=== PATIENT | female | born 1950 | race Caucasian/White ===

== ENCOUNTER 2017-03-19 14:56 | Emergency (ER) | payer OTHER ==
[2017-03-19 15:29] VITALS: TEMP 99.6; BMI 39.6
[2017-03-19 16:46] LABS: MCH 33.9 pg (25.7-33.7); MCHC 33.7 g/dl (32.0-36.0); MEAN CELL VOLUME 100.5 fl (80-96); MEAN PLT VOLUME 7.3 fl (7.5-11.1); PLATELET COUNT 179 K/MM3 (134-434); RDW 13.7 % (11.6-15.6); WHITE BLOOD COUNT 9.4 K/mm3 (4.0-10.0)
--- NOTE | 2017-03-19 16:49 | PDOC ---
Attending Attestation - Medical Decision Making 03/19/17 17:04 Dr. Haddad, vascular, was paged via phone answering service at this time requesting a call back for doctor to doctor consult. Dr. Cedillo is on-call this afternoon and will return the call for consult at her earliest convenience. 03/19/17 17:11 Dr. Cedillo returned the call and the patient's case was discussed. <Beckie Smith - Last Filed: 03/19/17 17:11> - Resident Resident Name: Jamil Richey - ED Attending Attestation I have performed the following: I have examined & evaluated the patient, The case was reviewed & discussed with the resident, I agree w/resident's findings & plan, Exceptions are as noted - HPI HPI: 03/19/17 16:47 56-year-old female sent from her dialysis center for clotted shunt. Patient states that was placed by physician in [place] sometime during the summer. Patient has no significant physical complaints, however, is noted that her oral temp is 99.6 - Physicial Exam PE: 03/19/17 18:24 obese 66 yo female with no specific physical complaints but states her dialysis catheter was clotted HEENT wnl Right anterior chest catheter port ,no cellulitis ,noerythema at the site Lungs no wheezing,no rales cvs [id number] abd protuberant,nontender neuro axox3 ,ambulatory - Medical Decision Making 03/19/17 18:29 arranged surgical follow up as outpatient tomorrow,patient agreeable with plan. Discharged home. Labs reviewed and electrolytes ok <Corazon Negron - Last Filed: 03/19/17 18:30>
[2017-03-19 16:59] LABS: URINE APPEARANCE SLCLOUDY; URINE BILIRUBIN NEGATIVE (NEGATIVE); URINE BLOOD NEGATIVE (NEGATIVE); URINE COLOR YELLOW; URINE GLUCOSE (UA) NEGATIVE (NEGATIVE); URINE KETONE NEGATIVE (NEGATIVE); URINE NITRITE NEGATIVE (NEGATIVE); URINE UROBILINOGEN NEGATIVE mg/dL (0.2-1.0)
[2017-03-19 16:59] LABS: INR 0.98 (0.82-1.09); PROTHROMBIN TIME (PATIENT) 10.8 SEC (9.98-11.88)
[2017-03-19 17:06] LABS: URINE PROTEIN 2+ (NEGATIVE)
[2017-03-19 17:12] LABS: ALBUMIN 3.8 g/dl (3.4-5.0); ANION GAP 16 (8-16); BILIRUBIN,TOTAL 0.3 mg/dL (0.2-1.0); CALCIUM 8.7 mg/dL (8.5-10.1); CO2 21 mmol/L (21-32); GLUCOSE,RANDOM 96 mg/dL (74-106); SGOT/AST 8 U/L (15-37); SGPT/ALT 14 U/L (12-78); TOT PROT 6.6 g/dl (6.4-8.2)
[2017-03-19 17:17] LABS: ALK PHOS 124 U/L (45-117)
[2017-03-19 17:20] LABS: CREATININE 7.7 mg/dL (0.55-1.02)
[2017-03-19 17:23] LABS: URIC ACID CRYSTALS RARE /hpf (NONE SEEN); URINE BACTERIA RARE /hpf (NONE SEEN); URINE HYALINE CAST 1 /lpf; URINE RBC <1 /hpf (0-3); URINE WBC 1 /hpf (3-5)
--- NOTE | 2017-03-19 17:24 | PDOC ---
History of Present Illness - General Chief Complaint: Dialysis Shunt Problem Stated Complaint: DIALYSIS PROBLEM Time Seen by Provider: 03/19/17 15:48 History Source: Patient Exam Limitations: No Limitations - History of Present Illness Initial Comments: 03/19/17 17:21 Patient is a 66F on TThS dialysis (unknown what caused her kidney failure), heart failure, HTN, and hypothyroidism here today complaining of a missed dialysis session secondary to a clotted port a cath. She has no other complaints at this time. She denies confusion, chest pain, shortness of breath, cough, abdominal pain, leg swelling, nausea, vomiting, fevers and chills. She denies pain, erythema and discharge at the site. Past History - Past Medical History Allergies/Adverse Reactions: Allergies Allergy/AdvReac Type Severity Reaction Status Date / Time Penicillins Allergy Verified 03/19/17 15:15 Home Medications: Ambulatory Orders Aspirin [Aspirin EC] 81 mg PO DAILY 03/19/17 Docusate Sodium [Colace -] 200 mg PO HS 03/19/17 Doxepin HCl [Sinequan -] 25 mg PO HS 03/19/17 Ergocalciferol [Vitamin D2] 50,000 unit PO Q30D 03/19/17 Folic Acid 1 mg PO DAILY 03/19/17 Levothyroxine [Synthroid -] 75 mcg PO DAILY 03/19/17 Metoprolol Tartrate 25 mg PO DAILY 03/19/17 Sevelamer Carbonate [Renvela] 1,600 mg PO CM 03/19/17 Simvastatin [Zocor] 10 mg PO HS 03/19/17 Trazodone HCl 25 mg PO HS 03/19/17 Vitamin B Comp W-C [Nephro-Kip -] 1 tablet PO DAILY 03/19/17 Zolpidem Tartrate [Ambien] 5 mg PO HS PRN 03/19/17 Anemia: Yes Dialysis: Yes (rt chest dilaysis cath, hd tues,thr,sat) HTN: Yes Hypercholesterolemia: Yes Seizures: Yes (hyper parathyroidism) - Surgical History Abdominal Surgery: Yes (multiple) Appendectomy: Yes - Psycho/Social/Smoking Cessation Hx Anxiety: No Suicidal Ideation: No Smoking History: Never smoked Have you smoked in the past 12 months: No Information on smoking cessation initiated: No Hx Alcohol Use: No Drug/Substance Use Hx: No Substance Use Type: None Review of Systems - Review of Systems Comments:: 03/19/17 17:24 GENERAL/CONSTITUTIONAL: No fever or chills. No weakness. HEAD, EYES, EARS, NOSE AND THROAT: No change in vision. No sore throat. CARDIOVASCULAR: No chest pain or shortness of breath RESPIRATORY: No cough, wheezing, or hemoptysis. GASTROINTESTINAL: No nausea, vomiting, diarrhea or constipation. GENITOURINARY: No dysuria, frequency, or change in urination. SKIN: No rash NEUROLOGIC: No headache, loss of consciousness, or change in strength/sensation. ALLERGIC/IMMUNOLOGIC: No hives or skin allergy. *Physical Exam - Vital Signs Last Vital Signs Temp Pulse Resp BP Pulse Ox 99.6 F 76 18 154/83 100 03/19/17 15:15 03/19/17 15:15 03/19/17 15:15 03/19/17 15:15 03/19/17 15:15 - Physical Exam Comments: 03/19/17 17:25 GENERAL: Awake, alert, and fully oriented, in no acute distress HEAD: No signs of trauma, normocephalic, atraumatic EYES: PERRLA, EOMI, sclera anicteric, conjunctiva clear ENT: Auricles normal inspection, hearing grossly normal, nares patent, oropharynx clear without exudates. Moist mucosa LUNGS: No distress, speaks full sentences, clear to auscultation bilaterally HEART: Regular rate and rhythm, normal S1 and S2, no murmurs, rubs or gallops, peripheral pulses normal and equal bilaterally. ABDOMEN: Soft, nontender, normoactive bowel sounds. No guarding, no rebound. No masses EXTREMITIES: Normal inspection, Normal range of motion, no edema. No clubbing or cyanosis. NEUROLOGICAL: Cranial nerves II through XII grossly intact. Normal speech, no focal sensorimotor deficits SKIN: Warm, Dry, normal turgor, no rashes or lesions noted. ED Treatment Course - LABORATORY CBC & Chemistry Diagram: 03/19/17 16:38 03/19/17 16:38 - ADDITIONAL ORDERS Additional order review: Laboratory Results 03/19/17 03/19/17 16:50 16:38 INR 0.98 Urine Color Yellow Urine Appearance Slcloudy Urine pH 5.0 Urine Protein 2+ H Urine Glucose (UA) Negative Urine Ketones Negative Urine Blood Negative Urine Nitrite Negative Urine Bilirubin Negative Urine Urobilinogen Negative 03/19/17 16:38 RBC 3.10 L MCV 100.5 H MCHC 33.7 RDW 13.7 MPV 7.3 L - RADIOLOGY Radiology Studies Ordered: Category Date Time Status CXRPORT [CHEST X-RAY PORTABLE*] [RAD] Stat Radiology 03/19/17 16:24 Taken Medical Decision Making - Medical Decision Making 03/19/17 17:25 66F on TThS dialysis, CHF, and hypothyroidism here today complaining of missed dialysis secondary to clogged port. No other complains. Vital signs normal and stable. Dr Cedillo, vascular surgeon, consulted. Plans to do replacement as an outpatient tomorrow. Patient finds plan acceptable. Will discharge pending labs and EKG. EKG shows normal sinus rhythm, normal rate, left axis deviation, QTc 472, no st elevations. 03/19/17 17:30 Laboratory Tests 03/19/17 03/19/17 16:38 16:38 WBC 9.4 Hgb 10.5 L Hct 31.2 L Plt Count 179 Potassium 4.4 BUN 64 H Creatinine 7.7 H* CBC shows no white count. Potassium is normal. BUN/Cr elevated, but due for dialysis and planned to get dialysis tomorrow. Will discharge. *DC/Admit/Observation/Transfer Diagnosis at time of Disposition: Dialysis complication Qualifiers: Encounter type: initial encounter Qualified Code(s): T82.9XXA - Unspecified complication of cardiac and vascular prosthetic device, implant and graft, initial encounter - Discharge Dispostion Disposition: HOME Condition at time of disposition: Good Admit: No - Patient Instructions Additional Instructions: Please call Dr Cedillo at [phone] tomorrow morning to setup replacement.
[2017-03-19 18:17] VITALS: BP 155/74; PULSE 71
--- NOTE | 2017-03-20 11:09 | EKG ---
Test Reason : Blood Pressure : / mmHG Vent. Rate : 074 BPM Atrial Rate : 074 BPM P-R Int : 202 ms QRS Dur : 090 ms QT Int : 426 ms P-R-T Axes : 044 -62 000 degrees QTc Int : 472 ms NORMAL SINUS RHYTHM LEFT ANTERIOR FASCICULAR BLOCK POSSIBLE ANTEROLATERAL INFARCT , AGE UNDETERMINED ABNORMAL ECG NO PREVIOUS ECGS AVAILABLE Confirmed by ABHIJIT MENDOZA MD ([id number]) on 03/20/2017 11:09:35 AM Referred By: Confirmed By:ABHIJIT MENDOZA MD
== END 2017-03-19 18:52 | disposition home or self-care (01) ==
LOC: JER 14:56
DX: T82.898A Other specified complication of vascular prosthetic devices, implants and grafts, initial encounter (principal); I25.10 Atherosclerotic heart disease of native coronary artery without angina pectoris; I13.2 Hypertensive heart and chronic kidney disease with heart failure and with stage 5 chronic kidney disease, or end stage renal disease; N18.6 End stage renal disease; I50.9 Heart failure, unspecified; Z99.2 Dependence on renal dialysis
CPT/HCPCS: 36415; 71010-TC; 80053; 81003; 81015; 85027; 85610; 86850; 86900; 86901; 93005; 93010; 99283-25

== ENCOUNTER 2017-03-21 06:50 | Day surgery (SDC) | payer OTHER ==
[2017-03-21 07:06] VITALS: BMI 29.2
--- NOTE | 2017-03-21 07:21 | PDOC ---
History of Present Illness - General Chief Complaint: PICC Line Insertion Stated Complaint: SENT BY PCP Time Seen by Provider: 03/21/17 07:04 Past History - Past Medical History Allergies/Adverse Reactions: Allergies Allergy/AdvReac Type Severity Reaction Status Date / Time Penicillins Allergy Verified 03/21/17 07:05 Home Medications: Ambulatory Orders Aspirin [Aspirin EC] 81 mg PO DAILY 03/19/17 Docusate Sodium [Colace -] 200 mg PO HS 03/19/17 Doxepin HCl [Sinequan -] 25 mg PO HS 03/19/17 Ergocalciferol [Vitamin D2] 50,000 unit PO Q30D 03/19/17 Folic Acid 1 mg PO DAILY 03/19/17 Levothyroxine [Synthroid -] 75 mcg PO DAILY 03/19/17 Metoprolol Tartrate 25 mg PO DAILY 03/19/17 Sevelamer Carbonate [Renvela] 1,600 mg PO CM 03/19/17 Simvastatin [Zocor] 10 mg PO HS 03/19/17 Trazodone HCl 25 mg PO HS 03/19/17 Vitamin B Comp W-C [Nephro-Kip -] 1 tablet PO DAILY 03/19/17 Zolpidem Tartrate [Ambien] 5 mg PO HS PRN 03/19/17 Anemia: Yes Dialysis: Yes (rt chest dilaysis cath, hd tues,thr,sat) HTN: Yes Hypercholesterolemia: Yes Seizures: Yes (hyper parathyroidism) - Surgical History Abdominal Surgery: Yes (multiple) Appendectomy: Yes - Psycho/Social/Smoking Cessation Hx Anxiety: No Suicidal Ideation: No Smoking History: Unknown if ever smoked Have you smoked in the past 12 months: No Information on smoking cessation initiated: No Hx Alcohol Use: No Drug/Substance Use Hx: No Substance Use Type: None *Physical Exam - Vital Signs Last Vital Signs Temp Pulse Resp BP Pulse Ox 98.6 F 73 22 150/80 97 03/21/17 07:05 03/21/17 07:05 03/21/17 07:05 03/21/17 07:05 03/21/17 07:05
--- NOTE | 2017-03-21 07:27 | PDOC ---
Attending Attestation - Physicial Exam PE: 03/21/17 07:49 GENERAL: Awake, alert, and fully oriented, in no acute distress. Obese. HEAD: No signs of trauma EYES: PERRLA, EOMI, sclera anicteric, conjunctiva clear ENT: Auricles normal inspection, hearing grossly normal, nares patent, oropharynx clear without exudates. Moist mucosa NECK: Normal ROM, supple, no lymphadenopathy, JVD, or masses LUNGS: Breath sounds equal, clear to auscultation bilaterally. No wheezes, and no crackles HEART: Regular rate and rhythm, normal S1 and S2, no murmurs, rubs or gallops ABDOMEN: Soft, nontender, normoactive bowel sounds. No guarding, no rebound. No masses EXTREMITIES: Normal range of motion, no edema. No clubbing or cyanosis. No cords, erythema, or tenderness NEUROLOGICAL: Cranial nerves II through XII grossly intact. Normal speech, normal gait SKIN: Permacath to the right chest wall, with no surrounding erythema or drainage from the site. Warm, Dry, normal turgor, no rashes or lesions noted. Documentation prepared by Sandie Chapman, acting as quality engineer medical device for Melissa Avery DO. - Medical Decision Making 03/21/17 08:07 Elenita from [facility] in [place] ([phone]) reports CVC was pulled out on Saturday. Patient did not have dialysis on Saturday. Her vascular surgeon in [place] is Dr. Rajeev Amador ([phone]). Anuradha, certified surgical technician for Dr. Steven Cedillo, reports patient is scheduled for surgery at 9 am. ([phone]). <Sandie Chapman - Last Filed: 03/21/17 08:16> - Resident Resident Name: Susan Cox - ED Attending Attestation I have performed the following: I have examined & evaluated the patient, The case was reviewed & discussed with the resident, I agree w/resident's findings & plan, Exceptions are as noted - HPI HPI: 03/21/17 09:00 66yo female presents from [facility] for eval of a malfunctioning HD catheter. Pt NPO for catheter replacement with Dr. Cedillo this AM. Pt is a poor historian and cannot provide any hx. Pt denies all somatic complaints. - Medical Decision Making 03/21/17 08:29 a/p: 66yo female with ESRD on HD presenting for perm cath change with Dr. Huertas -will discuss with Dr. Huertas -call placed to Anuradha his OR coordinator. -pt missed HD saturday of nonfunctioning perm cath. No somatic complaints. 03/21/17 09:02 Dr. Cedillo at the bedside, spoke with the OR. Pt will go to the OR for Perm catheter change and then to HD this afternoon. No labs needed from ED standpoint. Pt without somatic complaints. 03/21/17 09:02 I, Dr. Melissa Avery DO, attest that this document has been prepared under my direction and personally reviewed by me in its entirety. I further attest, that it accurately reflects all work, treatment, procedures and medical decision -making performed by me. <Melissa Avery - Last Filed: 03/21/17 09:02> Discharge Disposition <Sandie Chapman - Last Filed: 03/21/17 08:16> - Discharge Dispostion Admit: Yes - Transfer to Acute Care Facility Transfer comment: 03/21/17 08:31 I, Dr. Melissa Avery DO, attest that this document has been prepared under my direction and personally reviewed by me in its entirety. I further attest, that it accurately reflects all work, treatment, procedures and medical decision -making performed by me. <Melissa Avery - Last Filed: 03/21/17 09:02> - Diagnosis Dialysis complication, Dialysis catheter clot or failure - Discharge Dispostion Condition at time of disposition: Stable
[2017-03-21] MEDS ORDERED: BUPIVACAINE HCL/PF 0.25% (2.5MG/ML) 10 ML VIAL ONE ×2 (08:42→08:44)
--- NOTE | 2017-03-21 08:52 | PDOC ---
History of Present Illness - General Chief Complaint: PICC Line Insertion Stated Complaint: SENT BY PCP Time Seen by Provider: 03/21/17 07:04 History Source: Patient Exam Limitations: Clinical Condition (confused) - History of Present Illness Initial Comments: 66yo F with PMH of ESRD with HD T/Th/Sat presents from [facility] for replacement of permanent catheter. Pt attempted to have hemodialysis on Saturday , but catheter was found to be clogged. Vascular surgeon (Dr. Cedillo) scheduled to replace catheter in OR. Per pt's paperwork she was to be admitted to the OR through the ER. Then pt is scheduled for dialysis this afternoon. Pt is somewhat confused, thought she was here for a dressing change. Pt is a poor historian and no further history could be obtained. Pt denies complaints including fever, chills, nausea, vomiting, chest pain, palpitations, sob. 03/21/17 08:48 Past History - Past Medical History Allergies/Adverse Reactions: Allergies Allergy/AdvReac Type Severity Reaction Status Date / Time Penicillins Allergy Verified 03/21/17 07:05 Home Medications: Ambulatory Orders Aspirin [Aspirin EC] 81 mg PO DAILY 03/19/17 Docusate Sodium [Colace -] 200 mg PO HS 03/19/17 Doxepin HCl [Sinequan -] 25 mg PO HS 03/19/17 Ergocalciferol [Vitamin D2] 50,000 unit PO Q30D 03/19/17 Folic Acid 1 mg PO DAILY 03/19/17 Levothyroxine [Synthroid -] 75 mcg PO DAILY 03/19/17 Metoprolol Tartrate 25 mg PO DAILY 03/19/17 Sevelamer Carbonate [Renvela] 1,600 mg PO CM 03/19/17 Simvastatin [Zocor] 10 mg PO HS 03/19/17 Trazodone HCl 25 mg PO HS 03/19/17 Vitamin B Comp W-C [Nephro-Kip -] 1 tablet PO DAILY 03/19/17 Zolpidem Tartrate [Ambien] 5 mg PO HS PRN 03/19/17 Anemia: Yes Dialysis: Yes (rt chest dilaysis cath, hd ,thr,sat) HTN: Yes Hypercholesterolemia: Yes Seizures: Yes (hyper parathyroidism) Thyroid Disease: Yes (hypothyroid ) - Surgical History Abdominal Surgery: Yes (multiple) Appendectomy: Yes - Psycho/Social/Smoking Cessation Hx Anxiety: No Suicidal Ideation: No Smoking History: Unknown if ever smoked Have you smoked in the past 12 months: No Information on smoking cessation initiated: No Hx Alcohol Use: No Drug/Substance Use Hx: No Substance Use Type: None Review of Systems - Review of Systems Able to Perform ROS?: Yes Is the patient limited Nam[place]ian proficient: No Constitutional: No: Chills, Diaphoresis, Fever HEENTM: No: Recent change in vision, Ear Pain, Nose Pain, Throat Pain Respiratory: No: Cough, Shortness of Breath, Stridor, Wheezing, Hemoptysis Cardiac (ROS): No: Chest Pain, Edema, Irregular Heart Rate, Lightheadedness, Palpitations, Chest Tightness ABD/GI: No: Abdominal Distended, Constipated, Diarrhea, Nausea, Rectal Bleeding , Vomiting, Abdominal cramping : No: Dysuria, Hematuria Musculoskeletal: No: Joint Pain, Muscle Pain Integumentary: No: Bruising, Erythema, Rash Neurological: No: Headache, Weakness, Dizziness *Physical Exam - Vital Signs Last Vital Signs Temp Pulse Resp BP Pulse Ox 98.6 F 73 18 161/77 97 03/21/17 07:05 03/21/17 08:41 03/21/17 08:41 03/21/17 08:41 03/21/17 08:41 - Physical Exam General Appearance: Yes: Nourished, Appropriately Dressed. No: Apparent Distress HEENT: positive: EOMI, Normal Voice, Other (moist mucous membranes). negative: Pale Conjunctivae, Scleral Icterus (R), Scleral Icterus (L), Rhinorrhea Neck: positive: Trachea midline, Supple Respiratory/Chest: positive: Lungs Clear, Normal Breath Sounds. negative: Respiratory Distress, Accessory Muscle Use Cardiovascular: positive: Regular Rhythm, Regular Rate, S1, S2. negative: Murmur Gastrointestinal/Abdominal: positive: Soft, Tenderness (noted on RUQ, upon re- exam pt denies). negative: Distended, Guarding, Rebound Musculoskeletal: positive: Normal Inspection Extremity: positive: Normal Inspection. negative: Swelling, Calf Tenderness, Erythema Integumentary: positive: Normal Color, Dry, Warm. negative: Bruising Neurologic: positive: Alert, Normal Mood/Affect, Normal Response, Motor Strength 5/5, Confused (somewhat confused, at baseline mentation per content coordinator) Medical Decision Making - Medical Decision Making 66yo F with PMH of ESRD with HD T//Sat presents for replacement of permanent catheter. Dr. Cedillo (vascular surgeon) here in ER to receive pt. No labs needed from the ER. Pt sent to OR. Pt scheduled for hemodialysis later this afternoon. 03/21/17 09:00 *DC/Admit/Observation/Transfer Diagnosis at time of Disposition: Dialysis complication, Dialysis catheter clot or failure - Discharge Dispostion Admit: Yes
[2017-03-21] MEDS ORDERED: BUPIVACAINE HCL/PF 0.5% (5MG/ML) 10 ML VIAL ONE ×2 (08:58→11:07)
--- NOTE | 2017-03-21 09:01 | PN ---
Progress Note (short form) - Note Progress Note: Pt seen in ED, discussed with Nephrology on prior occasion. Pt has ESRD, on dialysis with right IJ permcath [placed elsewhere], catheter not functioning well, needs replacement. Pt is right handed, no pacemakers, no mastectomy, no chest surgery. There is a left forearm AV graft in place which is not functioning and appears never to have been used. Arms are symmetric, BP and pulses symmetric, Ray test shows brisk refill bilaterally. Plan will be to change permcath today and w/u for permanent access as outpt.
[2017-03-21] MEDS ORDERED: MIDAZOLAM HCL 2 MG/2 ML SINGLE DOSE VIAL ONE ×4 (09:44→10:11)
[2017-03-21] MEDS ORDERED: SUCCINYLCHOLINE CHLORIDE 200 MG/10 ML VIAL ONE (10:03)
[2017-03-21] MEDS ORDERED: PROPOFOL 20 ML ONE (10:03)
[2017-03-21] MEDS ORDERED: LIDOCAINE HCL/PF 2% SDV 5ML VIAL ONE (10:03)
[2017-03-21] MEDS ORDERED: VANCOMYCIN 1,000 MG VIAL (RESTRICTED TO ID ONLY) IVPB ONE (10:12)
[2017-03-21] MEDS ORDERED: BUPIVACAINE HCL/PF 0.5% (5MG/ML) 10 ML VIAL IJ ONE (10:19)
[2017-03-21] MEDS ORDERED: HEPARIN NA (PORCINE) 5,000 UNITS/ML 1ML VIAL ONE ×2 (10:21→11:07)
[2017-03-21] MEDS ORDERED: BACITRACIN 50,000 UNITS VIAL NR ONE (10:31)
--- NOTE | 2017-03-21 10:48 | OP ---
Operative Note - Note: Operative Date: 03/21/17 Pre-Operative Diagnosis: Malfunction Permcath Operation: Exchange of permcath Findings: New catheter working well Implants: Permcath Post-Operative Diagnosis: Same as Pre-op Surgeon: Steven Cedillo Specimens Removed: Old catheter Estimated Blood Loss (mls): 5 Drains & Tubes with Location: none
--- NOTE | 2017-03-21 10:57 | OP ---
Operative Note - Note: Operative Date: 03/21/17
[2017-03-21] MEDS ORDERED: ACETAMINOPHEN 325 MG TABLET (FP) PO PRN (10:59)
[2017-03-21 12:01] VITALS: TEMP 97.8
[2017-03-21] MEDS ORDERED: ACETAMINOPHEN 325 MG TABLET (FP) PO ONE (12:20)
[2017-03-21] MEDS ORDERED: ACETAMINOPHEN 325 MG TABLET (FP) ONE (12:28)
[2017-03-21 12:45] VITALS: BP 120/60; PULSE 70
--- NOTE | 2017-03-22 09:28 | PATH ---
Surgical Pathology Report Patient Name: CHRISTINA DENNY Med. Rec. #: [id number] /Age/Gender: 1950 (Age: 66) / F Account: [id number] Location: [facility] Taken: 03/21/2017 Received: 03/21/2017 Reported: 03/22/2017 Physicians: Steven Nguyen M.D. Specimen(s) Received OLD PERMA CATHETER Clinical History Dialysis complication Final Diagnosis [employer] MA[employer]GER, REMOVAL: DOUBLE LUMEN CATHETER CONSISTENT WITH PERMACATH (GROSS ONLY). Electronically Signed Jairo Maddox M.D. Gross Description Received fresh labeled "old permacath," is a 23 cm in length double lumen catheter. Also received within the same container is a 20 cm in length portion of tubing. No soft tissue is present. No sections are submitted, gross only. /03/21/2017 saudi/03/21/2017
--- NOTE | 2017-03-28 15:07 | OP ---
DATE OF OPERATION: 03/21/2017 PREOPERATIVE DIAGNOSIS: Malfunctioning PermCath right internal jugular vein. POSTOPERATIVE DIAGNOSIS: Malfunctioning PermCath right internal jugular vein. SURGERY PERFORMED: Exchange of right internal jugular PermCath. SURGEON: Steven Cedillo MD ANESTHESIA: Local standby. INDICATION FOR PROCEDURE: This patient is a 66-year-old female with end-stage renal disease, who presented with an existing right internal jugular vein PermCath which would not function. The decision was made to exchange the catheter. DESCRIPTION OF PROCEDURE: Patient was taken to the OR, given intravenous sedation and a 2 g of Ancef. The right neck and chest area were prepped and draped in the usual sterile manner. Using 0.5% Marcaine for local anesthesia, a small transverse incision was made at the root of the neck over the catheter tunnel. Through this incision, the existing catheter was identified and grasped with a clamp. At the exit site of the catheter, again with local anesthesia, the cuff of the catheter was carefully removed from the exit site. The catheter was divided in the previous incision, and the outer portion was removed and discarded. A guidewire was passed through the inner portion of the catheter, and the old catheter was removed. A new tunnel was created to the right lateral chest wall with local anesthesia, and using the tunneling device, the 19-cm PermCath was pulled through the tunnel. The sheath and dilator were passed over the guidewire. The guidewire and dilator were removed, and the catheter was placed easily through the peel-away sheath which was then removed. The position of the catheter was confirmed under fluoroscopy, and there was good blood flow in and out of the catheter. Catheter was capped with heparin, anchored with 2-0 nylon sutures, and the small incision was closed with a 4-0 Vicryl subcuticular stitch. Sterile dressings were applied. Estimated blood loss was negligible. Patient was taken to recovery in stable condition. Shaniqua [id number]
== END 2017-03-21 12:30 ==
LOC: JER 06:50 → JASU-SURG 08:31
PROVIDERS: ATTEND Surgery Vascular Surgery
PROC: 0J2TXYZ Change Other Device in Trunk Subcutaneous Tissue and Fascia, External Approach (ICD-10-PCS; principal; 2017-03-21 09:00)
DX: T82.898A Other specified complication of vascular prosthetic devices, implants and grafts, initial encounter (principal); N18.6 End stage renal disease; Z99.2 Dependence on renal dialysis
CPT/HCPCS: 36581; 77001; C1750; 71010-TC; 76000-TC; 88300-TC; 94760; 99282-25; J1644

== ENCOUNTER 2022-05-15 16:23 | Inpatient (IN) | payer OTHER ==
[2022-05-15 18:44] LABS: BASO % 0.2 % (0-2.0); EOS % 1.4 % (0-4.5); HEMATOCRIT 24.1 % (32.4-45.2); HEMOGLOBIN 8.1 GM/dL (10.7-15.3); LYMPH % 12.4 % (8-40); MCH 33.7 pg (25.7-33.7); MCHC 33.4 g/dl (32.0-36.0); MEAN CELL VOLUME 100.7 fl (80-96); MEAN PLT VOLUME 7.1 fl (7.5-11.1); MONO % 6.7 % (3.8-10.2); NEUT % 79.3 % (42.8-82.8); PLATELET COUNT 126 10^3/uL (134-434); RDW 16.6 % (11.6-15.6)
[2022-05-15 19:08] LABS: CHLORIDE 104 mmol/L (98-107); SODIUM 141 mmol/L (136-145)
[2022-05-15 19:10] LABS: ALBUMIN 3.1 g/dl (3.4-5.0); ANION GAP 12 MMOL/L (8-16); CALCIUM 9.4 mg/dL (8.5-10.1); CO2 25 mmol/L (21-32); GLUCOSE,RANDOM 104 mg/dL (74-106); MAGNESIUM 2.2 mg/dL (1.8-2.4)
[2022-05-15 19:11] LABS: BLOOD UREA NITROGEN 82.8 mg/dL (7-18)
[2022-05-15 19:13] LABS: PHOSPHOROUS 3.7 mg/dL (2.5-4.9); SGOT/AST 10 U/L (15-37)
[2022-05-15 19:14] LABS: SGPT/ALT 22 U/L (13-61)
[2022-05-15 19:15] LABS: BILIRUBIN,TOTAL 0.3 mg/dL (0.2-1); TOT PROT 5.8 g/dl (6.4-8.2)
[2022-05-15 19:16] LABS: ALK PHOS 81 U/L (45-117)
[2022-05-15 19:17] LABS: CREATININE 13.4 mg/dL (0.55-1.3)
[2022-05-16 00:59] VITALS: BMI 43.3
[2022-05-16] MEDS: ALBUTEROL SO4 2.5/IPRATROPIUM 0.5 INH SOL 3 ML VIAL.NEB. NEB SCH ×2 (08:26→20:50)
[2022-05-16 10:18] LABS: INR 0.99 (0.83-1.09); PROTHROMBIN TIME (PATIENT) 11.4 SEC (9.7-13.0)
[2022-05-16 10:24] LABS: BASO % 0.2 % (0-2.0); HEMATOCRIT 22.7 % (32.4-45.2); HEMOGLOBIN 7.6 GM/dL (10.7-15.3); LYMPH % 14.1 % (8-40); MCH 33.4 pg (25.7-33.7); MCHC 33.4 g/dl (32.0-36.0); MEAN CELL VOLUME 100.1 fl (80-96); MEAN PLT VOLUME 7.3 fl (7.5-11.1); MONO % 7.1 % (3.8-10.2); NEUT % 77.6 % (42.8-82.8); PLATELET COUNT 112 10^3/uL (134-434); RBC 2.27 M/mm3 (3.60-5.2); WHITE BLOOD COUNT 7.2 K/mm3 (4.0-10.0)
[2022-05-16 10:30] LABS: CHLORIDE 104 mmol/L (98-107); SODIUM 141 mmol/L (136-145)
[2022-05-16 10:43] LABS: ALBUMIN 2.8 g/dl (3.4-5.0); BLOOD UREA NITROGEN 86.5 mg/dL (7-18); CALCIUM 9.2 mg/dL (8.5-10.1); GLUCOSE,RANDOM 79 mg/dL (74-106)
[2022-05-16 10:44] LABS: ANION GAP 11 MMOL/L (8-16); CO2 25 mmol/L (21-32); MAGNESIUM 2.5 mg/dL (1.8-2.4)
[2022-05-16 10:46] LABS: PHOSPHOROUS 4.3 mg/dL (2.5-4.9); SGOT/AST 9 U/L (15-37); SGPT/ALT 20 U/L (13-61)
[2022-05-16 10:48] LABS: ALK PHOS 69 U/L (45-117); BILIRUBIN,TOTAL 0.3 mg/dL (0.2-1); TOT PROT 5.4 g/dl (6.4-8.2)
[2022-05-16 11:15] LABS: CREATININE 14.2 mg/dL (0.55-1.3)
[2022-05-16] MEDS: ASPIRIN 81 MG CHEWABLE TABLETS PO SCH ×2 (11:22→13:25)
[2022-05-16] MEDS: SEVELAMER CARBONATE 800 MG TAB (FP) PO SCH ×3 (11:22→18:25)
[2022-05-16] MEDS: FERROUS SO4 325 MG TABLET (FP) PO SCH ×2 (11:22→13:25)
[2022-05-16] MEDS: AMIODARONE HCL 200 MG TABLET PO SCH ×2 (11:22→13:26)
[2022-05-16] MEDS: VITAMIN B COMP W-C 1 EA TABLET (NEPHRO-VITE) PO SCH ×2 (11:22→13:27)
[2022-05-16] MEDS: FOLIC ACID 1 MG TABLET (FP) PO SCH ×2 (11:22→13:26)
[2022-05-16] MEDS: CHOLECALCIFEROL (VIT D3) 1,000 UNIT (25 MCG) TABLET PO SCH ×2 (11:23→13:25)
[2022-05-16] MEDS: metoPROLOL SUCCINATE 25 MG TAB.SR.24H (FP) PO SCH ×2 (11:23→13:53)
[2022-05-16] MEDS: SENNOSIDES 8.6MG TABLET (FP) PO SCH ×2 (11:23→13:27)
[2022-05-16] MEDS ORDERED: SODIUM CHLORIDE 250 ML IV PRN (13:10)
[2022-05-16] MEDS: HEPARIN NA (PORCINE) 5,000 UNITS/ML 1ML VIAL SQ SCH ×2 (13:21→21:00)
[2022-05-16] MEDS: LEVOTHYROXINE NA 88 MCG TABLET (FP) PO SCH (13:21)
[2022-05-16] MEDS: NYSTATIN POWDER 100,000 UNITS/GM - 15 GM TOPICAL POWDER TP SCH (13:55)
[2022-05-16] MEDS ORDERED: ATORVASTATIN CA 10 MG TABLET (FP) PO SCH (22:00)
[2022-05-16] MEDS ORDERED: MONTELUKAST NA 10 MG TABLET PO SCH (22:00)
[2022-05-16] MEDS ORDERED: MELATONIN 5 MG TABLETS PO SCH (22:00)
[2022-05-17] MEDS: LEVOTHYROXINE NA 88 MCG TABLET (FP) PO SCH (06:28)
[2022-05-17] MEDS ORDERED: EPOETIN ALFA-EPBX 20,000 UNIT/ML VIAL IVPUSH ONE ×2 (08:00→18:55)
[2022-05-17] MEDS: SEVELAMER CARBONATE 800 MG TAB (FP) PO SCH ×3 (09:10→18:32)
[2022-05-17] MEDS: FERROUS SO4 325 MG TABLET (FP) PO SCH (10:00)
[2022-05-17 11:01] LABS: BASO % 0.2 % (0-2.0); EOS % 1.1 % (0-4.5); HEMOGLOBIN 7.5 GM/dL (10.7-15.3); LYMPH % 13.5 % (8-40); MCH 32.7 pg (25.7-33.7); MCHC 32.7 g/dl (32.0-36.0); MEAN PLT VOLUME 7.5 fl (7.5-11.1); MONO % 6.6 % (3.8-10.2); NEUT % 78.6 % (42.8-82.8); PLATELET COUNT 114 10^3/uL (134-434); RDW 16.5 % (11.6-15.6); WHITE BLOOD COUNT 6.7 K/mm3 (4.0-10.0)
[2022-05-17] MEDS: SENNOSIDES 8.6MG TABLET (FP) PO SCH (11:24)
[2022-05-17] MEDS: VITAMIN B COMP W-C 1 EA TABLET (NEPHRO-VITE) PO SCH (11:24)
[2022-05-17] MEDS: FOLIC ACID 1 MG TABLET (FP) PO SCH (11:24)
[2022-05-17] MEDS: ALBUTEROL SO4 2.5/IPRATROPIUM 0.5 INH SOL 3 ML VIAL.NEB. NEB SCH ×2 (11:24→20:08)
[2022-05-17] MEDS: CHOLECALCIFEROL (VIT D3) 1,000 UNIT (25 MCG) TABLET PO SCH (11:24)
[2022-05-17] MEDS: metoPROLOL SUCCINATE 25 MG TAB.SR.24H (FP) PO SCH (11:25)
[2022-05-17] MEDS: NYSTATIN POWDER 100,000 UNITS/GM - 15 GM TOPICAL POWDER TP SCH (11:25)
[2022-05-17] MEDS ORDERED: LIDOCAINE HCL 1%, 10 MG/ML (20ML VIAL) ONE (15:05)
[2022-05-17] MEDS ORDERED: HEPARIN NA (PORCINE) 5,000 UNITS/ML 1ML VIAL ONE (15:05)
[2022-05-17] MEDS ORDERED: ONDANSETRON 4 MG/2 ML VIAL IVPUSH PRN ×2 (15:37→17:25)
[2022-05-17] MEDS ORDERED: SODIUM CHLORIDE 1,000 ML IV SCH (15:45)
[2022-05-17] MEDS ORDERED: MIDAZOLAM HCL 2 MG/2 ML SINGLE DOSE VIAL ONE (16:01)
[2022-05-17] MEDS ORDERED: IRON SUCROSE INJECTION 100 MG in SODIUM CHLORIDE 95 ML IVPB ONE ×2 (16:15→19:00)
[2022-05-17] MEDS ORDERED: SODIUM CHLORIDE 250 ML IV PRN ×2 (16:15→18:38)
[2022-05-17] MEDS ORDERED: CLINDAMYCIN 600 MG PREMIX BAG IVPB ONE ×2 (16:18→16:25)
[2022-05-17] MEDS ORDERED: CLINDAMYCIN 600MG PREMIX IVPB 600 MG/50 ML BAG IVPB ONE (16:26)
[2022-05-17] MEDS ORDERED: LIDOCAINE HCL 1%, 10 MG/ML (20ML VIAL) INF ONE ×2 (16:29)
[2022-05-17] MEDS: SODIUM CHLORIDE 1,000 ML IV SCH ×2 (19:00→21:44)
[2022-05-17 19:46] LABS: HEMATOCRIT 22.7 % (32.4-45.2); HEMOGLOBIN 7.5 GM/dL (10.7-15.3); MCHC 33.1 g/dl (32.0-36.0); MEAN CELL VOLUME 99.9 fl (80-96); MEAN PLT VOLUME 7.1 fl (7.5-11.1); PLATELET COUNT 112 10^3/uL (134-434); RBC 2.28 M/mm3 (3.60-5.2); RDW 16.5 % (11.6-15.6); WHITE BLOOD COUNT 6.7 K/mm3 (4.0-10.0)
[2022-05-17 20:06] LABS: CALCIUM 9.2 mg/dL (8.5-10.1); CHLORIDE 104 mmol/L (98-107); SODIUM 143 mmol/L (136-145)
[2022-05-17 20:08] LABS: ANION GAP 14 MMOL/L (8-16); CO2 25 mmol/L (21-32); GLUCOSE,RANDOM 106 mg/dL (74-106)
[2022-05-17 20:11] LABS: PHOSPHOROUS 3.3 mg/dL (2.5-4.9)
[2022-05-17 20:16] LABS: CREATININE 11.8 mg/dL (0.55-1.3)
[2022-05-17] MEDS: PATIENT'S OWN MEDICATION (NON-FORMULARY) (Fluticasone/Vilanterol 1 PUFF Inhaler) IN SCH (20:36)
[2022-05-17] MEDS: MELATONIN 5 MG TABLETS PO SCH (21:42)
[2022-05-17] MEDS: HEPARIN NA (PORCINE) 5,000 UNITS/ML 1ML VIAL SQ SCH (21:42)
[2022-05-17] MEDS: MONTELUKAST NA 10 MG TABLET PO SCH (21:43)
[2022-05-17] MEDS: ATORVASTATIN CA 10 MG TABLET (FP) PO SCH (21:43)
[2022-05-17] MEDS ORDERED: VILANTEROL IN SCH (23:15)
[2022-05-17] MEDS ORDERED: FLUTICASONE IN SCH (23:15)
[2022-05-18] MEDS: HEPARIN NA (PORCINE) 5,000 UNITS/ML 1ML VIAL SQ SCH ×3 (06:33→22:05)
[2022-05-18] MEDS: LEVOTHYROXINE NA 88 MCG TABLET (FP) PO SCH (06:34)
[2022-05-18] MEDS: ALBUTEROL SO4 2.5/IPRATROPIUM 0.5 INH SOL 3 ML VIAL.NEB. NEB SCH ×2 (08:30→20:31)
[2022-05-18] MEDS: AMIODARONE HCL 200 MG TABLET PO SCH (09:41)
[2022-05-18] MEDS: metoPROLOL SUCCINATE 25 MG TAB.SR.24H (FP) PO SCH (09:41)
[2022-05-18] MEDS: SENNOSIDES 8.6MG TABLET (FP) PO SCH (09:53)
[2022-05-18] MEDS: FOLIC ACID 1 MG TABLET (FP) PO SCH (09:53)
[2022-05-18] MEDS: VITAMIN B COMP W-C 1 EA TABLET (NEPHRO-VITE) PO SCH (09:54)
[2022-05-18] MEDS: ASPIRIN 81 MG CHEWABLE TABLETS PO SCH (09:54)
[2022-05-18] MEDS: NYSTATIN POWDER 100,000 UNITS/GM - 15 GM TOPICAL POWDER TP SCH (09:54)
[2022-05-18] MEDS: SEVELAMER CARBONATE 800 MG TAB (FP) PO SCH ×3 (09:54→18:20)
[2022-05-18] MEDS: FERROUS SO4 325 MG TABLET (FP) PO SCH (09:54)
[2022-05-18] MEDS: CHOLECALCIFEROL (VIT D3) 1,000 UNIT (25 MCG) TABLET PO SCH (09:54)
[2022-05-18 10:00] LABS: BASO % 0.1 % (0-2.0); EOS % 0.9 % (0-4.5); HEMOGLOBIN 7.2 GM/dL (10.7-15.3); LYMPH % 12.3 % (8-40); MCH 32.7 pg (25.7-33.7); MCHC 32.9 g/dl (32.0-36.0); MEAN CELL VOLUME 99.6 fl (80-96); MEAN PLT VOLUME 7.3 fl (7.5-11.1); MONO % 6.8 % (3.8-10.2); NEUT % 79.9 % (42.8-82.8); PLATELET COUNT 101 10^3/uL (134-434); RBC 2.21 M/mm3 (3.60-5.2); RDW 16.6 % (11.6-15.6); WHITE BLOOD COUNT 6.9 K/mm3 (4.0-10.0)
[2022-05-18] MEDS ORDERED: AMIODARONE HCL 200 MG TABLET PO SCH (10:00)
[2022-05-18 10:21] LABS: CHLORIDE 103 mmol/L (98-107)
[2022-05-18 10:29] LABS: CALCIUM 9.2 mg/dL (8.5-10.1); CO2 30 mmol/L (21-32); GLUCOSE,RANDOM 105 mg/dL (74-106); SGOT/AST 12 U/L (15-37)
[2022-05-18 10:31] LABS: TOT PROT 5.6 g/dl (6.4-8.2)
[2022-05-18 10:32] LABS: BILIRUBIN,TOTAL 0.4 mg/dL (0.2-1)
[2022-05-18 10:33] LABS: ALK PHOS 62 U/L (45-117); ANION GAP 11 MMOL/L (8-16); BLOOD UREA NITROGEN 42.9 mg/dL (7-18); CREATININE 7.9 mg/dL (0.55-1.3); SGPT/ALT 18 U/L (13-61); SODIUM 143 mmol/L (136-145)
[2022-05-18] MEDS ORDERED: SODIUM CHLORIDE 250 ML IV PRN (14:59)
[2022-05-18] MEDS: MONTELUKAST NA 10 MG TABLET PO SCH (22:05)
[2022-05-18] MEDS: MELATONIN 5 MG TABLETS PO SCH (22:05)
[2022-05-18] MEDS: ATORVASTATIN CA 10 MG TABLET (FP) PO SCH (22:05)
[2022-05-19] MEDS: HEPARIN NA (PORCINE) 5,000 UNITS/ML 1ML VIAL SQ SCH ×3 (06:40→21:38)
[2022-05-19] MEDS: LEVOTHYROXINE NA 88 MCG TABLET (FP) PO SCH (06:44)
[2022-05-19] MEDS ORDERED: EPOETIN ALFA-EPBX 20,000 UNIT/ML VIAL IVPUSH ONE (08:00)
[2022-05-19] MEDS: ALBUTEROL SO4 2.5/IPRATROPIUM 0.5 INH SOL 3 ML VIAL.NEB. NEB SCH ×2 (08:22→20:12)
[2022-05-19 09:37] LABS: BASO % 0.2 % (0-2.0); EOS % 1.6 % (0-4.5); HEMATOCRIT 20.7 % (32.4-45.2); MCH 32.6 pg (25.7-33.7); MCHC 32.6 g/dl (32.0-36.0); MEAN CELL VOLUME 100.1 fl (80-96); MEAN PLT VOLUME 7.5 fl (7.5-11.1); MONO % 7.5 % (3.8-10.2); NEUT % 76.7 % (42.8-82.8); PLATELET COUNT 98 10^3/uL (134-434); RBC 2.07 M/mm3 (3.60-5.2); RDW 16.5 % (11.6-15.6); WHITE BLOOD COUNT 6.6 K/mm3 (4.0-10.0)
[2022-05-19 09:47] LABS: CHLORIDE 103 mmol/L (98-107); SODIUM 141 mmol/L (136-145)
[2022-05-19 09:49] LABS: ALBUMIN 2.7 g/dl (3.4-5.0); ANION GAP 9 MMOL/L (8-16); CALCIUM 9.7 mg/dL (8.5-10.1); CO2 29 mmol/L (21-32)
[2022-05-19 09:50] LABS: BLOOD UREA NITROGEN 49.3 mg/dL (7-18); GLUCOSE,RANDOM 134 mg/dL (74-106)
[2022-05-19 09:53] LABS: SGOT/AST 10 U/L (15-37); SGPT/ALT 17 U/L (13-61)
[2022-05-19 09:54] LABS: BILIRUBIN,TOTAL 0.2 mg/dL (0.2-1); TOT PROT 5.1 g/dl (6.4-8.2)
[2022-05-19 09:55] LABS: ALK PHOS 61 U/L (45-117)
[2022-05-19] MEDS: metoPROLOL SUCCINATE 25 MG TAB.SR.24H (FP) PO SCH (10:00)
[2022-05-19 10:01] LABS: HEMOGLOBIN 6.7 GM/dL (10.7-15.3)
[2022-05-19 10:17] LABS: CREATININE 9.7 mg/dL (0.55-1.3)
[2022-05-19] MEDS: SENNOSIDES 8.6MG TABLET (FP) PO SCH (10:18)
[2022-05-19 10:27] LABS: PHOSPHOROUS 3.3 mg/dL (2.5-4.9)
[2022-05-19] MEDS: SEVELAMER CARBONATE 800 MG TAB (FP) PO SCH ×3 (12:00→18:20)
[2022-05-19] MEDS: NYSTATIN POWDER 100,000 UNITS/GM - 15 GM TOPICAL POWDER TP SCH (13:18)
[2022-05-19] MEDS: FERROUS SO4 325 MG TABLET (FP) PO SCH (13:19)
[2022-05-19] MEDS: ASPIRIN 81 MG CHEWABLE TABLETS PO SCH (13:19)
[2022-05-19] MEDS: FOLIC ACID 1 MG TABLET (FP) PO SCH (13:19)
[2022-05-19] MEDS: CHOLECALCIFEROL (VIT D3) 1,000 UNIT (25 MCG) TABLET PO SCH (13:20)
[2022-05-19] MEDS: VITAMIN B COMP W-C 1 EA TABLET (NEPHRO-VITE) PO SCH (13:20)
[2022-05-19] MEDS: PATIENT'S OWN MEDICATION (NON-FORMULARY) (Fluticasone/Vilanterol 1 PUFF Inhaler) IN SCH ×2 (14:57→15:31)
[2022-05-19] MEDS: SODIUM CHLORIDE 1,000 ML IV SCH (15:25)
[2022-05-19] MEDS: ATORVASTATIN CA 10 MG TABLET (FP) PO SCH (21:38)
[2022-05-19] MEDS: MELATONIN 5 MG TABLETS PO SCH (21:38)
[2022-05-19] MEDS: MONTELUKAST NA 10 MG TABLET PO SCH (21:38)
[2022-05-20] MEDS: HEPARIN NA (PORCINE) 5,000 UNITS/ML 1ML VIAL SQ SCH ×3 (05:43→22:13)
[2022-05-20] MEDS: LEVOTHYROXINE NA 88 MCG TABLET (FP) PO SCH (06:10)
[2022-05-20] MEDS: ALBUTEROL SO4 2.5/IPRATROPIUM 0.5 INH SOL 3 ML VIAL.NEB. NEB SCH ×2 (08:00→20:23)
[2022-05-20] MEDS: SEVELAMER CARBONATE 800 MG TAB (FP) PO SCH ×3 (09:44→18:16)
[2022-05-20] MEDS: FOLIC ACID 1 MG TABLET (FP) PO SCH (09:44)
[2022-05-20] MEDS: FERROUS SO4 325 MG TABLET (FP) PO SCH (09:44)
[2022-05-20] MEDS: metoPROLOL SUCCINATE 25 MG TAB.SR.24H (FP) PO SCH (09:45)
[2022-05-20] MEDS: ASPIRIN 81 MG CHEWABLE TABLETS PO SCH (09:45)
[2022-05-20] MEDS: AMIODARONE HCL 200 MG TABLET PO SCH (09:45)
[2022-05-20] MEDS: VITAMIN B COMP W-C 1 EA TABLET (NEPHRO-VITE) PO SCH (09:45)
[2022-05-20] MEDS: CHOLECALCIFEROL (VIT D3) 1,000 UNIT (25 MCG) TABLET PO SCH (09:45)
[2022-05-20] MEDS: SENNOSIDES 8.6MG TABLET (FP) PO SCH ×2 (09:45→18:17)
[2022-05-20 10:44] LABS: BASO % 0.1 % (0-2.0); EOS % 2.2 % (0-4.5); LYMPH % 10.7 % (8-40); MCH 32.8 pg (25.7-33.7); MCHC 33.4 g/dl (32.0-36.0); MEAN CELL VOLUME 98.2 fl (80-96); MEAN PLT VOLUME 7.3 fl (7.5-11.1); MONO % 6.9 % (3.8-10.2); NEUT % 80.1 % (42.8-82.8); PLATELET COUNT 105 10^3/uL (134-434); RBC 3.06 M/mm3 (3.60-5.2); RDW 18.9 % (11.6-15.6); WHITE BLOOD COUNT 8.1 K/mm3 (4.0-10.0)
[2022-05-20] MEDS: NYSTATIN POWDER 100,000 UNITS/GM - 15 GM TOPICAL POWDER TP SCH (13:29)
[2022-05-20] MEDS ORDERED: SENNOSIDES 8.6MG TABLET (FP) PO ONE ×2 (19:21→19:28)
[2022-05-20] MEDS: ATORVASTATIN CA 10 MG TABLET (FP) PO SCH (22:14)
[2022-05-20] MEDS: MONTELUKAST NA 10 MG TABLET PO SCH (22:14)
[2022-05-20] MEDS: MELATONIN 5 MG TABLETS PO SCH (22:14)
[2022-05-21] MEDS: HEPARIN NA (PORCINE) 5,000 UNITS/ML 1ML VIAL SQ SCH ×3 (06:12→22:09)
[2022-05-21] MEDS: LEVOTHYROXINE NA 88 MCG TABLET (FP) PO SCH (06:13)
[2022-05-21] MEDS: ALBUTEROL SO4 2.5/IPRATROPIUM 0.5 INH SOL 3 ML VIAL.NEB. NEB SCH ×2 (08:20→19:45)
[2022-05-21] MEDS: metoPROLOL SUCCINATE 25 MG TAB.SR.24H (FP) PO SCH (10:13)
[2022-05-21] MEDS: SENNOSIDES 8.6MG TABLET (FP) PO SCH (10:13)
[2022-05-21] MEDS: CHOLECALCIFEROL (VIT D3) 1,000 UNIT (25 MCG) TABLET PO SCH (10:14)
[2022-05-21] MEDS: FOLIC ACID 1 MG TABLET (FP) PO SCH (10:14)
[2022-05-21] MEDS: ASPIRIN 81 MG CHEWABLE TABLETS PO SCH (10:14)
[2022-05-21] MEDS: FERROUS SO4 325 MG TABLET (FP) PO SCH (10:14)
[2022-05-21] MEDS: SEVELAMER CARBONATE 800 MG TAB (FP) PO SCH ×3 (10:14→17:57)
[2022-05-21] MEDS: VITAMIN B COMP W-C 1 EA TABLET (NEPHRO-VITE) PO SCH (10:14)
[2022-05-21] MEDS: NYSTATIN POWDER 100,000 UNITS/GM - 15 GM TOPICAL POWDER TP SCH (18:38)
[2022-05-21] MEDS: BUDESONIDE/FORMETEROL FUMARATE 80/4.5 mcg INHALER IH SCH (22:09)
[2022-05-21] MEDS: MELATONIN 5 MG TABLETS PO SCH (22:09)
[2022-05-21] MEDS: ATORVASTATIN CA 10 MG TABLET (FP) PO SCH (22:09)
[2022-05-21] MEDS: MONTELUKAST NA 10 MG TABLET PO SCH (22:09)
[2022-05-22] MEDS: LEVOTHYROXINE NA 88 MCG TABLET (FP) PO SCH (06:52)
[2022-05-22] MEDS: HEPARIN NA (PORCINE) 5,000 UNITS/ML 1ML VIAL SQ SCH ×2 (06:52→13:05)
[2022-05-22] MEDS: SEVELAMER CARBONATE 800 MG TAB (FP) PO SCH ×3 (09:23→18:49)
[2022-05-22] MEDS: ALBUTEROL SO4 2.5/IPRATROPIUM 0.5 INH SOL 3 ML VIAL.NEB. NEB SCH (09:30)
[2022-05-22] MEDS ORDERED: SODIUM CHLORIDE 250 ML IV PRN ×2 (10:28→10:29)
[2022-05-22] MEDS ORDERED: EPOETIN ALFA-EPBX 10,000 UNIT/ML VIAL IVPUSH ONE (10:29)
[2022-05-22] MEDS: BUDESONIDE/FORMETEROL FUMARATE 80/4.5 mcg INHALER IH SCH (10:29)
[2022-05-22 10:31] LABS: BASO % 0.2 % (0-2.0); EOS % 2.8 % (0-4.5); HEMATOCRIT 30.5 % (32.4-45.2); HEMOGLOBIN 9.9 GM/dL (10.7-15.3); LYMPH % 11.7 % (8-40); MCH 32.1 pg (25.7-33.7); MCHC 32.3 g/dl (32.0-36.0); MEAN CELL VOLUME 99.4 fl (80-96); MEAN PLT VOLUME 7.6 fl (7.5-11.1); MONO % 5.2 % (3.8-10.2); NEUT % 80.1 % (42.8-82.8); PLATELET COUNT 124 10^3/uL (134-434); RBC 3.07 M/mm3 (3.60-5.2); WHITE BLOOD COUNT 7.1 K/mm3 (4.0-10.0)
[2022-05-22 10:47] LABS: CHLORIDE 102 mmol/L (98-107); SODIUM 141 mmol/L (136-145)
[2022-05-22 10:51] LABS: ALBUMIN 2.8 g/dl (3.4-5.0); ANION GAP 7 MMOL/L (8-16); CALCIUM 9.7 mg/dL (8.5-10.1); CO2 32 mmol/L (21-32); GLUCOSE,RANDOM 132 mg/dL (74-106)
[2022-05-22 10:52] LABS: BLOOD UREA NITROGEN 44.3 mg/dL (7-18)
[2022-05-22 10:54] LABS: SGPT/ALT 18 U/L (13-61)
[2022-05-22 10:55] LABS: SGOT/AST 11 U/L (15-37)
[2022-05-22 10:56] LABS: BILIRUBIN,TOTAL 0.4 mg/dL (0.2-1); TOT PROT 5.3 g/dl (6.4-8.2)
[2022-05-22 10:57] LABS: ALK PHOS 67 U/L (45-117)
[2022-05-22 11:06] LABS: CREATININE 8.7 mg/dL (0.55-1.3)
[2022-05-22] MEDS: metoPROLOL SUCCINATE 25 MG TAB.SR.24H (FP) PO SCH (13:02)
[2022-05-22] MEDS: AMIODARONE HCL 200 MG TABLET PO SCH (13:05)
[2022-05-22] MEDS: ASPIRIN 81 MG CHEWABLE TABLETS PO SCH (13:05)
[2022-05-22] MEDS: VITAMIN B COMP W-C 1 EA TABLET (NEPHRO-VITE) PO SCH (13:05)
[2022-05-22] MEDS: SENNOSIDES 8.6MG TABLET (FP) PO SCH (13:06)
[2022-05-22] MEDS: FERROUS SO4 325 MG TABLET (FP) PO SCH (13:06)
[2022-05-22] MEDS: CHOLECALCIFEROL (VIT D3) 1,000 UNIT (25 MCG) TABLET PO SCH (13:06)
[2022-05-22] MEDS: FOLIC ACID 1 MG TABLET (FP) PO SCH (13:06)
[2022-05-22 15:32] VITALS: RESP 20
[2022-05-22] MEDS: NYSTATIN POWDER 100,000 UNITS/GM - 15 GM TOPICAL POWDER TP SCH (15:42)
[2022-05-22 18:23] VITALS: BP 121/58; PULSE 79; TEMP 98
== END 2022-05-22 20:05 | DRG 252 ==
LOC: JER 16:23 → UNDOADMOB 19:50 → INTOOBSV 19:50 → JERBED 19:50 → J5S 22:53 → JERBED 05-16 08:51 → J5S 05-16 08:51 → OBSVTOIN 05-18 14:17
PROVIDERS: ADMIT Internal Medicine
PROC: 3E05317 Introduction of Other Thrombolytic into Peripheral Artery, Percutaneous Approach (ICD-10-PCS; 2022-05-17)
PROC: B51N1ZZ Fluoroscopy of Left Upper Extremity Veins using Low Osmolar Contrast (ICD-10-PCS; 2022-05-17)
PROC: 05CY3ZZ Extirpation of Matter from Upper Vein, Percutaneous Approach (ICD-10-PCS; principal; 2022-05-17 15:30)
PROC: 057Y3DZ Dilation of Upper Vein with Intraluminal Device, Percutaneous Approach (ICD-10-PCS; 2022-05-17 15:30)
PROC: 30233N1 Transfusion of Nonautologous Red Blood Cells into Peripheral Vein, Percutaneous Approach (ICD-10-PCS; 2022-05-19)
PROC: 5A1D70Z Performance of Urinary Filtration, Intermittent, Less than 6 Hours Per Day (ICD-10-PCS; 2022-05-22)
DX: T82.590A Other mechanical complication of surgically created arteriovenous fistula, initial encounter (principal); N18.6 End stage renal disease; I13.2 Hypertensive heart and chronic kidney disease with heart failure and with stage 5 chronic kidney disease, or end stage renal disease; Z68.41 Body mass index [BMI] 40.0-44.9, adult; D63.1 Anemia in chronic kidney disease; J44.9 Chronic obstructive pulmonary disease, unspecified; N25.0 Renal osteodystrophy; Y83.9 Surgical procedure, unspecified as the cause of abnormal reaction of the patient, or of later complication, without mention of misadventure at the time of the procedure; Z99.2 Dependence on renal dialysis; E78.5 Hyperlipidemia, unspecified; E66.9 Obesity, unspecified; I50.9 Heart failure, unspecified
CPT/HCPCS: 0241U-QW; 36415; 36430; 71045-TC-FY; 76000-TC-FY; 76882-TC-RT-FY; 80048; 80053; 82607; 82746; 82962; 83036; 83735; 84100; 84439; 84443; 84481; 84484; 85025; 85027; 85610; 86803; 86850; 86900; 86901; 86922; 87340; 93005; 93010; 93306-TC; 93990-TC; 94640; 94760; 99285-25; C1757; C9803-CS; G0378; J1644; J1756; P9058; U0003; U0005

== ENCOUNTER 2022-05-24 18:00 | Emergency (ER) | payer OTHER ==
[2022-05-24 18:27] VITALS: BMI 37.2
[2022-05-24] MEDS ORDERED: methylPREDNISolone NA SUCC 125 MG/2 ML VIAL IVPUSH ONE (20:23)
[2022-05-24 20:35] LABS: BASO % 0.2 % (0-2.0); EOS % 1.6 % (0-4.5); HEMATOCRIT 30.7 % (32.4-45.2); HEMOGLOBIN 9.9 GM/dL (10.7-15.3); LYMPH % 12.7 % (8-40); MCH 32.6 pg (25.7-33.7); MCHC 32.3 g/dl (32.0-36.0); MEAN PLT VOLUME 7.1 fl (7.5-11.1); MONO % 6.2 % (3.8-10.2); NEUT % 79.3 % (42.8-82.8); RBC 3.04 M/mm3 (3.60-5.2); RDW 17.2 % (11.6-15.6); WHITE BLOOD COUNT 7.4 K/mm3 (4.0-10.0)
[2022-05-24] MEDS ORDERED: ALBUTEROL SO4 2.5/IPRATROPIUM 0.5 INH SOL 3 ML VIAL.NEB. NEB ONE (20:38)
[2022-05-24] MEDS ORDERED: methylPREDNISolone NA SUCC 125 MG/2 ML VIAL ONE (20:38)
[2022-05-24] MEDS: ALBUTEROL SO4 2.5/IPRATROPIUM 0.5 INH SOL 3 ML VIAL.NEB. NEB SCH (20:50)
[2022-05-24 20:51] LABS: CHLORIDE 105 mmol/L (98-107); SODIUM 143 mmol/L (136-145)
[2022-05-24 20:53] LABS: CALCIUM 8.8 mg/dL (8.5-10.1)
[2022-05-24 20:54] LABS: ANION GAP 7 MMOL/L (8-16); CO2 30 mmol/L (21-32); GLUCOSE,RANDOM 97 mg/dL (74-106)
[2022-05-24 20:57] LABS: CREATININE 4.3 mg/dL (0.55-1.3); SGOT/AST 15 U/L (15-37); SGPT/ALT 21 U/L (13-61)
[2022-05-24 20:59] LABS: BILIRUBIN,TOTAL 0.3 mg/dL (0.2-1); TOT PROT 5.6 g/dl (6.4-8.2)
[2022-05-24 21:00] LABS: ALK PHOS 77 U/L (45-117)
[2022-05-24 21:49] LABS: PLATELET COUNT 92 10^3/uL (134-434)
[2022-05-25 02:55] VITALS: BP 160/71; PULSE 81; RESP 20; TEMP 98.5
== END 2022-05-25 06:06 ==
LOC: JER 18:00
PROC: 3E033GC Introduction of Other Therapeutic Substance into Peripheral Vein, Percutaneous Approach (ICD-10-PCS; principal; 2022-05-24)
PROC: 3E0F7GC Introduction of Other Therapeutic Substance into Respiratory Tract, Via Natural or Artificial Opening (ICD-10-PCS; 2022-05-24)
DX: R06.02 Shortness of breath (principal); I95.9 Hypotension, unspecified
CPT/HCPCS: 0241U-QW; 36415; 71045-TC-FY; 80053; 83735; 84484; 85025; 93005; 93010; 99285-25

== ENCOUNTER 2023-08-13 16:43 | Inpatient (IN) | payer OTHER ==
[2023-08-13 19:34] LABS: BASO % 0.5 % (0-2.0); EOS % 1.9 % (0-4.5); HEMATOCRIT 29.7 % (32.4-45.2); HEMOGLOBIN 9.6 GM/dL (10.7-15.3); LYMPH % 15.4 % (8-40); MCH 31.7 pg (25.7-33.7); MCHC 32.3 g/dl (32.0-36.0); MEAN CELL VOLUME 98.2 fl (80-96); MONO % 6.6 % (3.8-10.2); NEUT % 75.6 % (42.8-82.8); RBC 3.02 M/mm3 (3.60-5.2); RDW 17.1 % (11.6-15.6); WHITE BLOOD COUNT 6.7 K/mm3 (4.0-10.0)
[2023-08-13 19:51] LABS: CHLORIDE 104 mmol/L (98-107); POTASSIUM 5.6 mmol/L (3.5-5.1); SODIUM 135 mmol/L (136-145)
[2023-08-13 19:53] LABS: CALCIUM 8.8 mg/dL (8.5-10.1)
[2023-08-13 19:54] LABS: ALBUMIN 3.9 g/dl (3.4-5.0); ANION GAP 8 mmol/L (4-13); BLOOD UREA NITROGEN 99.3 mg/dL (7-18); CO2 24 mmol/L (21-32); GLUCOSE,RANDOM 81 mg/dL (74-106); MAGNESIUM 2.6 mg/dL (1.8-2.4)
[2023-08-13 19:57] LABS: SGOT/AST 8 U/L (15-37); SGPT/ALT 16 U/L (13-61)
[2023-08-13 19:58] LABS: BILIRUBIN,TOTAL 0.4 mg/dL (0.2-1); TOT PROT 6.3 g/dl (6.4-8.2)
[2023-08-13 20:01] LABS: ALK PHOS 91 U/L (45-117)
[2023-08-13 21:09] LABS: MEAN PLT VOLUME 7.9 fl (7.5-11.1); PLATELET COUNT 78 10^3/uL (134-434)
[2023-08-13] MEDS: FUROSEMIDE 40 MG/4 ML INJECTABLE VIAL IVPUSH ONE (23:57)
[2023-08-13] MEDS ORDERED: FUROSEMIDE 40 MG/4 ML INJECTABLE VIAL ONE (23:59)
[2023-08-14] MEDS: FUROSEMIDE 40 MG/4 ML INJECTABLE VIAL IVPUSH SCH ×2 (00:03→15:04)
[2023-08-14 00:12] LABS: IRON SERUM 48 ug/dL (50-175)
[2023-08-14 00:13] LABS: TOTAL IRON BINDING CAPACITY 189 ug/dL (250-450)
[2023-08-14 01:17] LABS: RETICULOCYTES 1.68 % (0.5-1.5)
[2023-08-14] MEDS ORDERED: HALOPERIDOL LACTATE 5 MG/ML ONE (01:28)
[2023-08-14] MEDS: HALOPERIDOL LACTATE 5 MG/ML IM ONE (01:33)
[2023-08-14] MEDS: BRIMONIDINE TARTRATE 0.2% OPHTHALMIC 5 ML BOTTLE OU SCH (02:40)
[2023-08-14 08:22] LABS: INR 1.06 (0.83-1.09); PROTHROMBIN TIME (PATIENT) 12.3 SEC (9.7-13.0)
[2023-08-14] MEDS ORDERED: FUROSEMIDE 40 MG/4 ML INJECTABLE VIAL ONE (08:33)
[2023-08-14] MEDS ORDERED: SODIUM ZIRCONIUM CYCLOSILICATE (LOKELMA) 10 GM PACKET ONE ×2 (08:33→13:09)
[2023-08-14 08:36] LABS: CHLORIDE 104 mmol/L (98-107); POTASSIUM 5.4 mmol/L (3.5-5.1); SODIUM 136 mmol/L (136-145)
[2023-08-14 08:39] LABS: BASO % 0.3 % (0-2.0); EOS % 0.9 % (0-4.5); HEMATOCRIT 26.3 % (32.4-45.2); HEMOGLOBIN 8.5 GM/dL (10.7-15.3); LYMPH % 21.2 % (8-40); MCH 31.9 pg (25.7-33.7); MCHC 32.4 g/dl (32.0-36.0); MEAN CELL VOLUME 98.6 fl (80-96); MEAN PLT VOLUME 8.7 fl (7.5-11.1); MONO % 6.7 % (3.8-10.2); NEUT % 70.9 % (42.8-82.8); PLATELET COUNT 61 10^3/uL (134-434); RBC 2.67 M/mm3 (3.60-5.2); RDW 16.5 % (11.6-15.6); WHITE BLOOD COUNT 5.5 K/mm3 (4.0-10.0)
[2023-08-14 08:44] LABS: ANION GAP 10 mmol/L (4-13); CALCIUM 9.2 mg/dL (8.5-10.1); CO2 22 mmol/L (21-32); GLUCOSE,RANDOM 84 mg/dL (74-106)
[2023-08-14 08:45] LABS: MAGNESIUM 2.5 mg/dL (1.8-2.4)
[2023-08-14 08:47] LABS: BLOOD UREA NITROGEN 96.7 mg/dL (7-18); PHOSPHOROUS 7.4 mg/dL (2.5-4.9)
[2023-08-14] MEDS: SEVELAMER CARBONATE 800 MG TAB (FP) PO SCH (08:50)
[2023-08-14] MEDS: LEVOTHYROXINE NA 125 MCG TABLET (FP) PO SCH (08:50)
[2023-08-14 08:55] LABS: CREATININE 11.7 mg/dL (0.55-1.3)
[2023-08-14] MEDS: SODIUM ZIRCONIUM CYCLOSILICATE (LOKELMA) 5 GM PACKET PO SCH ×2 (09:05→13:13)
[2023-08-14] MEDS: DOXEPIN HCL 25 MG CAPSULE PO SCH (09:05)
[2023-08-14] MEDS ORDERED: SODIUM CHLORIDE 250 ML IV PRN (13:03)
[2023-08-14] MEDS: ATORVASTATIN CA 10 MG TABLET (FP) PO SCH (21:55)
[2023-08-14] MEDS: MONTELUKAST NA 10 MG TABLET PO SCH (21:56)
[2023-08-14] MEDS: MELATONIN 5 MG TABLETS PO SCH (21:56)
[2023-08-14] MEDS ORDERED: ATORVASTATIN CA 10 MG TABLET (FP) PO SCH (22:00)
[2023-08-14] MEDS ORDERED: MONTELUKAST NA 10 MG TABLET PO SCH (22:00)
[2023-08-14] MEDS ORDERED: MELATONIN 5 MG TABLETS PO SCH (22:00)
[2023-08-14 23:28] VITALS: BMI 30.4
[2023-08-15] MEDS: LEVOTHYROXINE NA 125 MCG TABLET (FP) PO SCH (06:52)
[2023-08-15 07:28] LABS: BASO % 0.6 % (0-2.0); EOS % 0.8 % (0-4.5); HEMATOCRIT 25.1 % (32.4-45.2); HEMOGLOBIN 8.3 GM/dL (10.7-15.3); LYMPH % 19.9 % (8-40); MCHC 32.9 g/dl (32.0-36.0); MEAN CELL VOLUME 97.3 fl (80-96); MEAN PLT VOLUME 8.5 fl (7.5-11.1); NEUT % 71.7 % (42.8-82.8); PLATELET COUNT 62 10^3/uL (134-434); RBC 2.58 M/mm3 (3.60-5.2); RDW 16.3 % (11.6-15.6); WHITE BLOOD COUNT 5.1 K/mm3 (4.0-10.0)
[2023-08-15 07:48] LABS: CHLORIDE 103 mmol/L (98-107); SODIUM 135 mmol/L (136-145)
[2023-08-15 07:57] LABS: ALBUMIN 3.6 g/dl (3.4-5.0); CALCIUM 8.7 mg/dL (8.5-10.1); CO2 22 mmol/L (21-32); GLUCOSE,RANDOM 82 mg/dL (74-106); MAGNESIUM 2.4 mg/dL (1.8-2.4)
[2023-08-15 08:00] LABS: PHOSPHOROUS 8.2 mg/dL (2.5-4.9); SGPT/ALT 15 U/L (13-61)
[2023-08-15 08:01] LABS: SGOT/AST 7 U/L (15-37); TOT PROT 5.8 g/dl (6.4-8.2)
[2023-08-15 08:02] LABS: BILIRUBIN,TOTAL 0.4 mg/dL (0.2-1)
[2023-08-15 08:03] LABS: ALK PHOS 77 U/L (45-117)
[2023-08-15 08:07] LABS: ANION GAP 10 mmol/L (4-13); BLOOD UREA NITROGEN 104.7 mg/dL (7-18); CREATININE 12.9 mg/dL (0.55-1.3); POTASSIUM 6.1 mmol/L (3.5-5.1)
[2023-08-15] MEDS ORDERED: FUROSEMIDE 40 MG/4 ML INJECTABLE VIAL IVPUSH SCH (10:00)
[2023-08-15] MEDS ORDERED: LIDOCAINE HCL 1%, 10 MG/ML (20ML VIAL) ONE (10:07)
[2023-08-15] MEDS ORDERED: HEPARIN NA (PORCINE) 5,000 UNITS/ML 1ML VIAL ONE (10:07)
[2023-08-15] MEDS: SEVELAMER CARBONATE 800 MG TAB (FP) PO SCH ×2 (10:09→17:42)
[2023-08-15] MEDS ORDERED: ALBUTEROL SO4 HFA INHALER IH ONE (10:50)
[2023-08-15] MEDS ORDERED: CALCIUM CHLORIDE 1 GM/10 ML *DISP.SYRIN ONE (10:53)
[2023-08-15] MEDS ORDERED: MIDAZOLAM HCL 2 MG/2 ML SINGLE DOSE VIAL ONE (10:54)
[2023-08-15] MEDS: ceFAZolin SODIUM 1 GM VIAL IVPB ONE (11:05)
[2023-08-15] MEDS: LIDOCAINE HCL 1%, 10 MG/ML (20ML VIAL) INF ONE ×2 (11:08)
[2023-08-15] MEDS ORDERED: BRIMONIDINE TARTRATE 0.2% OPHTHALMIC 5 ML BOTTLE OU SCH (12:27)
[2023-08-15] MEDS: ALBUTEROL SO4 0.083% IH SOL 2.5 MG/3 ML VIAL.NEB. NEB ONE ×2 (12:33→14:36)
[2023-08-15] MEDS ORDERED: ONDANSETRON 4 MG/2 ML VIAL IVPUSH PRN (12:49)
[2023-08-15] MEDS: EPOETIN ALFA-EPBX 10,000 UNIT/ML VIAL SQ ONE (13:34)
[2023-08-15] MEDS: DEXTROSE 50%-WATER 25 GM/50 ML DISP.SYRIN IVPUSH ONE ×2 (13:35→14:35)
[2023-08-15] MEDS: CALCIUM GLUCONATE IN NACL 1 GM/50 ML BAG IVPB ONE ×2 (13:35→14:36)
[2023-08-15] MEDS: BRIMONIDINE TARTRATE 0.2% OPHTHALMIC 5 ML BOTTLE OU SCH (13:35)
[2023-08-15] MEDS: INSULIN REGULAR HUMAN 100 UNITS/ML *VIAL IV ONE ×2 (13:35→14:35)
[2023-08-15] MEDS: DOXEPIN HCL 25 MG CAPSULE PO SCH (13:35)
[2023-08-15 13:56] VITALS: RESP 18
[2023-08-15] MEDS: LACTATED RINGERS SOLUTION 1,000 ML IV SCH (14:36)
[2023-08-15 14:48] LABS: ALBUMIN 3.6 g/dl (3.4-5.0); ALK PHOS 76 U/L (45-117); ANION GAP 10 mmol/L (4-13); BILIRUBIN,TOTAL 0.3 mg/dL (0.2-1); BLOOD UREA NITROGEN 104.4 mg/dL (7-18); CALCIUM 9.1 mg/dL (8.5-10.1); CHLORIDE 105 mmol/L (98-107); CO2 21 mmol/L (21-32); CREATININE 12.5 mg/dL (0.55-1.3); GLUCOSE,RANDOM 87 mg/dL (74-106); POTASSIUM 5.4 mmol/L (3.5-5.1); SGOT/AST 9 U/L (15-37); SGPT/ALT 18 U/L (13-61); SODIUM 136 mmol/L (136-145); TOT PROT 5.8 g/dl (6.4-8.2)
[2023-08-15] MEDS ORDERED: SODIUM CHLORIDE 250 ML IV PRN (17:24)
[2023-08-15] MEDS: FUROSEMIDE 40 MG/4 ML INJECTABLE VIAL IVPUSH SCH (18:57)
[2023-08-15] MEDS: EPOETIN ALFA-EPBX 10,000 UNIT/ML VIAL IVPUSH ONE (19:28)
[2023-08-15] MEDS: SODIUM ZIRCONIUM CYCLOSILICATE (LOKELMA) 5 GM PACKET PO SCH (21:55)
[2023-08-15] MEDS: MONTELUKAST NA 10 MG TABLET PO SCH (21:55)
[2023-08-15] MEDS: ATORVASTATIN CA 10 MG TABLET (FP) PO SCH (21:56)
[2023-08-15] MEDS: MELATONIN 5 MG TABLETS PO SCH (21:56)
[2023-08-16] MEDS: LEVOTHYROXINE NA 125 MCG TABLET (FP) PO SCH (06:08)
[2023-08-16 07:21] LABS: BASO % 0.5 % (0-2.0); EOS % 0.6 % (0-4.5); LYMPH % 13.6 % (8-40); MCH 31.8 pg (25.7-33.7); MEAN CELL VOLUME 99.4 fl (80-96); MEAN PLT VOLUME 8.5 fl (7.5-11.1); MONO % 8.1 % (3.8-10.2); NEUT % 77.2 % (42.8-82.8); PLATELET COUNT 57 10^3/uL (134-434); RBC 2.52 M/mm3 (3.60-5.2); RDW 16.6 % (11.6-15.6)
[2023-08-16 07:32] LABS: POTASSIUM 4.6 mmol/L (3.5-5.1)
[2023-08-16 07:37] LABS: ALBUMIN 3.4 g/dl (3.4-5.0)
[2023-08-16 07:38] LABS: CALCIUM 8.2 mg/dL (8.5-10.1); MAGNESIUM 2.1 mg/dL (1.8-2.4)
[2023-08-16 07:40] LABS: CREATININE 7.3 mg/dL (0.55-1.3); PHOSPHOROUS 5.9 mg/dL (2.5-4.9)
[2023-08-16 07:42] LABS: BILIRUBIN,TOTAL 0.4 mg/dL (0.2-1); TOT PROT 5.6 g/dl (6.4-8.2)
[2023-08-16 07:47] LABS: BLOOD UREA NITROGEN 46.3 mg/dL (7-18)
[2023-08-16] MEDS: DOXEPIN HCL 25 MG CAPSULE PO SCH (10:00)
[2023-08-16 13:41] VITALS: BP 136/67; PULSE 75; TEMP 97.9
== END 2023-08-16 17:34 | DRG 314 ==
LOC: JER 16:43 → JERBED 20:46 → J4W 08-14 20:25
PROVIDERS: ADMIT Internal Medicine; ATTEND Internal Medicine
PROC: B518ZZA Fluoroscopy of Superior Vena Cava, Guidance (ICD-10-PCS; 2023-08-15)
PROC: 5A1D70Z Performance of Urinary Filtration, Intermittent, Less than 6 Hours Per Day (ICD-10-PCS; 2023-08-15)
PROC: 02H633Z Insertion of Infusion Device into Right Atrium, Percutaneous Approach (ICD-10-PCS; principal; 2023-08-15 09:30)
DX: T82.868A Thrombosis due to vascular prosthetic devices, implants and grafts, initial encounter (principal); N18.6 End stage renal disease; I12.0 Hypertensive chronic kidney disease with stage 5 chronic kidney disease or end stage renal disease; D69.6 Thrombocytopenia, unspecified; J44.9 Chronic obstructive pulmonary disease, unspecified; E87.5 Hyperkalemia; E03.9 Hypothyroidism, unspecified; E78.5 Hyperlipidemia, unspecified; E83.39 Other disorders of phosphorus metabolism; E83.41 Hypermagnesemia; N25.0 Renal osteodystrophy; Y83.8 Other surgical procedures as the cause of abnormal reaction of the patient, or of later complication, without mention of misadventure at the time of the procedure; D63.1 Anemia in chronic kidney disease; Z99.2 Dependence on renal dialysis
CPT/HCPCS: 36415; 71045-TC-FY; 76000-TC-FY; 80048; 80053; 82607; 82728; 83540; 83550; 83735; 84100; 85025; 85045; 85610; 86704; 86803; 87340; 87635; 93005; 93010; 94760; 99285-25; C1750; J1644; Q5106